=== PATIENT | male | born 1975 | race Caucasian/White ===

== ENCOUNTER → 2016-09-15 | Outpatient (CLI) | payer OTHER ==
[2015-03-27 20:28] VITALS: BP 136/77
--- NOTE | 2016-09-16 07:33 | RAD ---
Lumbar spine, 5 views, 09/15/2016: History: Injury, pain The lumbar vertebral heights are well-maintained. There is mild disc space narrowing, endplate sclerosis and marginal spurring at L5-S1. There is a slight spondylolisthesis at that level. There are mild degenerative changes involving scattered facet joints in the lower lumbar spine. There is also moderate degenerative disc disease at T12-L1. The paraspinous soft tissues are unremarkable. IMPRESSION: 1. Moderate scattered degenerative changes. 2. Minimal spondylolisthesis at L5-S1 due to facet joint arthropathy. 3. No acute bony abnormality is detected.
== END | disposition home or self-care (01) ==
LOC: RAD 16:38
DX: S39.012A Strain of muscle, fascia and tendon of lower back, initial encounter (principal); M43.17 Spondylolisthesis, lumbosacral region
CPT/HCPCS: 72110